=== PATIENT | female | born 1990 ===

== ENCOUNTER 2021-09-23 15:12 | Emergency (ER) | payer MEDICAID ==
[~2021-09-23] VITALS: Ht 157.5 cm; Wt 114.0 kg
[2021-09-23] MEDS ORDERED: ACETAMINOPHEN 325MG TABLET PO ONE (15:30)
[2021-09-23] MEDS ORDERED: IBUPROFEN 600MG TABLET PO ONE (15:30)
[2021-09-23 16:32] VITALS: BP 162/98
[2021-09-23] MEDS ORDERED: IBUP-2029 MT (16:43)
== END 2021-09-23 17:05 | disposition home or self-care (01) ==
LOC: ER 15:12
DX: M25.571 Pain in right ankle and joints of right foot (principal); W01.0XXA Fall on same level from slipping, tripping and stumbling without subsequent striking against object, initial encounter; Y93.9 Activity, unspecified; Y92.89 Other specified places as the place of occurrence of the external cause; Y99.8 Other external cause status
CPT/HCPCS: 73610; 99283